=== PATIENT | male | born 1950 | race African-American/Black ===

== ENCOUNTER 2016-07-04 20:28 | Emergency (ER) | payer OTHER ==
[~2016-07-04 20:28] MED LIST: ASAB PO; ATV.5 PO; COREG3 PO; HYDROCHLOROT25 MG PO; LEVAQUIN750 MG PO; NORCO1 TA1 PO; P20 PO; PROVHFA INH
[2016-07-04 22:09] LABS: BASOPHILS 0.5 %; BASOPHILS ABSOLUTE 0.03 10/3/uL (0.0-0.16); EOSINOPHILS ABSOLUTE 0.13 10/3/uL (0.0-0.53); ER CBC TAT 0 Hrs 05 Mins; HEMOGLOBIN 9.7 g/dL (13.6-17.8); IMMATURE GRANULOCYTES 0.3 %; IMMATURE GRANULOCYTES ABSOLUTE 0.02 10/3/uL (0.0-0.11); LYMPHOCYTES 48.2 %; LYMPHOCYTES ABSOLUTE 3.16 10/3/uL (0.67-4.30); MEAN CORPUS HGB CONC 35.5 g/dL (32.0-36.0); MEAN CORPUSCULAR HEMOGLOB 34.8 pg (26.0-34.0); MEAN CORPUSCULAR VOLUME 97.8 fL (80-100); MEAN PLATELET VOLUME 11.1 fL (9.2-13.0); MONOCYTES 14.2 %; MONOCYTES ABSOLUTE 0.93 10/3/uL (0.21-1.20); NEUTROPHILS 34.8 %; NEUTROPHILS ABSOLUTE 2.28 10/3/uL (2.02-8.40); PLATELET COUNT 110 10/3/uL (150-400); RBC DISTRIBUTION WIDTH 14.2 % (12.0-16.0); RED CELL COUNT 2.79 10/6/uL (4.7-6.1); WHITE BLOOD CELLS 6.6 10/3/uL (4.5-10.5)
[2016-07-04 22:11] LABS: HEMATOCRIT 27.3 % (40.0-51.0); MANUAL DIFF NO %
[2016-07-04 22:17] LABS: INTERNATIONAL NORMAL RATI 1.5 UNITS (-)
[2016-07-04 22:18] LABS: PROTIME (NOT ORD) 17.6 SEC (12.0-14.5)
[2016-07-04 22:28] LABS: BUN (BLOOD UREA NITROGEN) 20 MG/DL (6-23); CALCIUM, SERUM 7.7 MG/DL (8.5-10.4); CHLORIDE, SERUM 108 MMOL/L (96-112); CO2 (CARBON DIOXIDE) 20 MMOL/L (24-34); CREATININE 1.35 MG/DL (0.70-1.30); GFR AFRICAN AMERICAN 62 ML/MIN (>=60); GFR NON AFRICAN AMERICAN 54 ML/MIN (>=60); POTASSIUM, SERUM 4.5 MMOL/L (3.5-5.3); SGOT(AST) 281 U/L (5-40); SGPT(ALT) 144 U/L (5-65); SODIUM, SERUM 136 MMOL/L (135-148); TOTAL BILIRUBIN 0.9 MG/DL (0-1.2); TOTAL PROTEIN 8.2 G/DL (6.0-8.5)
[2016-07-04 22:29] LABS: A/G RATIO 0.3 (0.7-1.9); ALBUMIN 1.9 G/DL (3.5-5.0); ALKALINE PHOSPHATASE 231 U/L (45-117); DIRECT BILIRUBIN 0.5 MG/DL (0.0-0.4); GLOBULIN 6.3 G/DL (2.5-4.1); GLUCOSE, SERUM 78 MG/DL (60-99); INDIRECT BILIRUBIN(NOT ORDER) 0.4 MG/DL (0.1-0.9)
[2016-07-04 22:39] LABS: LACTATE 4.6 MMOL/L (0.3-2.4)
[2016-07-04 23:01] LABS: PROCALCITONIN 0.22 ng/mL (<0.5)
[2016-07-05] MEDS ORDERED: *UNABLE2 (00:20)
[2016-07-05 00:29] LABS: ASCORBIC ACID (UR NOT ORDER) NEG (NEG); BILIRUBIN, URINE NEGATIVE (NEG); ER URINALYSIS TAT 0 Hrs 00 Mins; KETONE, URINE NEGATIVE (NEG); LEUKOCYTE ESTERASE(NOT OR NEG (NEG); NITRITE (URINE) NEG (NEG); WBC (NOT ORDERED) (RFLEX) 2 (0-5)
== END 2016-07-05 02:00 | disposition home or self-care (01) ==
LOC: ER 20:28
PROVIDERS: Nurse Practitioner
DX: M54.5 Low back pain (principal); D64.9 Anemia, unspecified; K76.9 Liver disease, unspecified; J45.909 Unspecified asthma, uncomplicated; J44.9 Chronic obstructive pulmonary disease, unspecified; N18.9 Chronic kidney disease, unspecified; I50.9 Heart failure, unspecified; F17.200 Nicotine dependence, unspecified, uncomplicated; Z85.79 Personal history of other malignant neoplasms of lymphoid, hematopoietic and related tissues; Z95.810 Presence of automatic (implantable) cardiac defibrillator; Z86.19 Personal history of other infectious and parasitic diseases; Z88.0 Allergy status to penicillin
CPT/HCPCS: 74176; 80053; 81001; 82248; 83605; 83690; 84145; 85025; 85610; 85730; 93005; 96374; 96375; 99285; J2405